=== PATIENT | female | born 1990 | race African-American/Black ===

== ENCOUNTER 2016-09-28 19:57 | Emergency (ER) | payer OTHER ==
[~2016-09-28] VITALS: Ht 167.6 cm; Wt 63.5 kg
[2016-09-28 19:57] VITALS: BP 134/77
--- NOTE | 2016-09-28 20:11 | NUR ---
PT BIB RA IN [facility] FOR OK TO BOOK. NO COMPLAINTS. NAD NOTED. IN ER BED 15.
--- NOTE | 2016-09-28 20:15 | NUR ---
Patient discharged to [facility] in stable condition. Written and verbal after care instructions given. Patient verbalizes understanding of instruction.
== END 2016-09-28 20:32 | disposition home or self-care (01) ==
LOC: ER 19:57
DX: Z02.89 Encounter for other administrative examinations (principal); M25.531 Pain in right wrist
CPT/HCPCS: 99283; A4606; Z7610